=== PATIENT | female | born 1945 | race Caucasian/White ===

== ENCOUNTER 2016-12-07 11:24 | Emergency (ER) | payer MEDICARE ==
[~2016-12-07] VITALS: Ht 154.9 cm; Wt 61.4 kg
[2016-12-07] MEDS ORDERED: CITA40TA4 (11:53)
[2016-12-07] MEDS ORDERED: [UNRECOGNIZED DRUG - CODE] (11:53)
[2016-12-07] MEDS ORDERED: SPIR1CAP (11:53)
[2016-12-07] MEDS ORDERED: ADV250INH (11:53)
[2016-12-07] MEDS ORDERED: HYDR-3363 (11:53)
[2016-12-07] MEDS ORDERED: LEVO75TA4 (11:53)
[2016-12-07] MEDS ORDERED: DULO1CAP3 (11:53)
[2016-12-07] MEDS ORDERED: COMBAER6 (11:53)
[2016-12-07] MEDS ORDERED: METF500T4 (11:53)
[2016-12-07] MEDS ORDERED: VYTORIN (11:53)
[2016-12-07] MEDS ORDERED: VALS1TAB46 (11:53)
[2016-12-07] MEDS ORDERED: MAG400TA (11:53)
[2016-12-07] MEDS ORDERED: METO1TAB7 (11:53)
[2016-12-07] MEDS ORDERED: ALBU83IN (11:53)
[2016-12-07] MEDS ORDERED: LANTINJ4 (11:53)
[2016-12-07] MEDS ORDERED: MONT10TA2 (11:53)
[2016-12-07] MEDS ORDERED: methylPREDNISolone INJ 125 MG/2 ML VIAL (J2930) IV ONE (12:30)
[2016-12-07] MEDS ORDERED: ASPIRIN 81 MG CHEW TABLET PO ONE (12:30)
[2016-12-07] MEDS: IPRATROPIUM 0.5MG/ALBUTEROL 2.5MG INH SOL UD 3ML (DUONEB)(J7620) NEB SCH ×3 (12:37→13:49)
[2016-12-07 13:09] LABS: BASO # 0.1 K/mm3 (0.0-0.2); BASO % 0.6 % (0.0-1.0); EOS # 0.2 K/mm3 (0.0-0.50); EOS % 1.5 % (0.0-3.0); LARGE UNSTAINED CELL # 0.2 K/mm3 (0.0-0.4); LARGE UNSTAINED CELL % 1.6 % (0.0-4.0); LYMPH # 3.2 K/mm3 (1.5-4.5); LYMPH % 32.4 % (24.0-44.0); MEAN CORPUSCULAR HEMOGLOBIN 30.4 pg (27.0-33.0); MEAN CORPUSCULAR HGB CONC 33.5 g/dl (32.0-36.5); MONO # 0.6 K/mm3 (0.0-0.8); MONO % 5.6 % (0.0-5.0); NEUTROPHILS # 5.7 K/mm3 (1.8-7.7); NEUTROPHILS % 58.3 % (36.0-66.0); PLATELET COUNT, AUTOMATED 401 k/mm3 (150-450); RED CELL DISTRIBUTION WIDTH 13.5 % (11.5-14.5); WHITE BLOOD COUNT 9.8 K/mm3 (4.0-10.0)
[2016-12-07 13:15] LABS: INR 0.9
--- NOTE | 2016-12-07 13:30 | REP ---
Chest x-ray: Two views. History: Dyspnea and cough. Findings: The lungs are slightly hyperinflated. There is mild linear fibrosis versus plate-like atelectasis in the left base. Lung singh are otherwise clear. The pleural angles are sharp. Heart is not enlarged. There are mild degenerative changes in the thoracic spine. EKG electrodes overlie the chest. Impression: Mild hyperinflation and linear fibrosis left base. Otherwise no acute disease. Signed by Eddie Lau MD 12/07/2016 02:12 P
[2016-12-07 13:33] LABS: ANION GAP 7 MEQ/L (8-16); AST/SGOT 12 U/L (15-37); BLOOD UREA NITROGEN 15 MG/DL (7-18); CALCIUM LEVEL 9.1 MG/DL (8.8-10.2); CARBON DIOXIDE LEVEL 29 MEQ/L (21-32); CHLORIDE LEVEL 100 MEQ/L (98-107); CREATININE FOR GFR 0.72 MG/DL (0.55-1.02); GLOMERULAR FILTRATION RATE > 60.0 (>45); GLUCOSE, FASTING 176 MG/DL (80-110); POTASSIUM SERUM 3.8 MEQ/L (3.5-5.1); SODIUM LEVEL 136 MEQ/L (136-145)
[2016-12-07 13:34] LABS: ALBUMIN 3.5 GM/DL (3.2-5.2); ALBUMIN/GLOBULIN RATIO 0.83 (1.00-1.93); ALKALINE PHOSPHATASE 66 U/L (45-117); ALT/SGPT 14 U/L (12-78); BILIRUBIN,DIRECT 0.1 MG/DL (0.0-0.2); BILIRUBIN,TOTAL 0.3 MG/DL (0.2-1.0); TOTAL PROTEIN 7.7 GM/DL (6.4-8.2)
[2016-12-07] MEDS ORDERED: AVEL1TAB3 PO (16:58)
[2016-12-07] MEDS ORDERED: PRED10TA2 PO (16:59)
[2016-12-07 17:15] VITALS: BP 180/81
--- NOTE | 2016-12-07 20:30 | ECGEPIP ---
Stationary ECG Study [facility] - ED Test Date: 2016-12-07 Pat Name: ISIDRO PATINO Department: Room: - Gender: F Elementary Assistant Teacher: BRENDA : 1945 Requested By: Timothy Pope Order Number: [id number] Reading MD: Sofie Sewell Measurements Intervals [place] Rate: 99 P: VT: 0 QRS: -87 QRSD: 76 T: 72 QT: 353 QTc: 454 Interpretive Statements SINUS RHYTHM INDETERMINATE AXIS NO PRIOR FOR COMPARISON Electronically Signed On 12-07-2016 20:30:24 EDT by Sofie Sewell
--- NOTE | 2016-12-07 20:38 | ECGEPIP ---
Stationary ECG Study [facility] - ED Test Date: 2016-12-07 Pat Name: ISIDRO PATINO Department: Room: - Gender: F Fruit Sorter: mehul : 1945 Requested By: SHY MATA Order Number: [id number] Reading MD: Sofie Sewell Measurements Intervals [place] Rate: 102 P: IN: 0 QRS: -8 QRSD: 81 T: 72 QT: 350 QTc: 457 Interpretive Statements SINUS TACHYCARDIA INDETERMINATE AXIS ABNORMAL RHYTHM ECG SIMILAR 12/07/16 Electronically Signed On 12-07-2016 20:37:27 EDT by Sofie Sewell
== END 2016-12-07 17:26 | disposition home or self-care (01) ==
LOC: M ED 11:24 → EDBD 11:24 → M ED 17:26
DX: J44.1 Chronic obstructive pulmonary disease with (acute) exacerbation (principal); R00.0 Tachycardia, unspecified; R94.31 Abnormal electrocardiogram [ECG] [EKG]; E11.9 Type 2 diabetes mellitus without complications; J45.909 Unspecified asthma, uncomplicated; F17.200 Nicotine dependence, unspecified, uncomplicated; Z79.4 Long term (current) use of insulin; Z79.899 Other long term (current) drug therapy; Z88.7 Allergy status to serum and vaccine; Z88.8 Allergy status to other drugs, medicaments and biological substances
CPT/HCPCS: 71020; 80048; 80076; 82550; 82553; 84484; 85025; 85610; 87040; 93005; 93041; 94640; 94760; 96374; 99285; J2930

== ENCOUNTER → 2017-03-08 | Outpatient (CLI) | payer MEDICARE ==
[~2017-03-08] MED LIST: ADV250INH; ALBU83IN; AVEL1TAB3 PO; CITA40TA4; COMBAER6; DULO1CAP3; HYDR-3363; LANTINJ4; LEVO75TA4; MAG400TA; METF500T4; METO1TAB7; MONT10TA2; PRED10TA2 PO; SPIR1CAP; VALS1TAB46; VYTORIN; [UNRECOGNIZED DRUG - CODE]
--- NOTE | 2017-03-08 11:53 | REP ---
Clinical: History of COPD with dyspnea. Comparison: None. Findings: Moderate/early advanced COPD and emphysematous changes along with mid to lower lobe scarring and bronchiectasis (left greater than right) appear chronic. Scattered noncalcified nodular densities measuring up to 2-3 mm are noted and may represent associated chronic changes. No consolidation, effusion, or pneumothorax. No obvious adenopathy. Atherosclerotic changes to the thoracic aorta and coronary arteries noted without aortic aneurysm or cardiomegaly. No pericardial effusion. Musculoskeletal structures demonstrate age-related degenerative changes. Impression: Moderate/early advanced COPD and emphysematous changes with predominantly lower lobe (left greater than right) fibrosis and scarring. Scattered 2-3 mm noncalcified nodules likely represent associated chronic changes and less likely significant process. No prior examination is available for comparison and 9-12 month follow-up examination may be warranted to document stability. Signed by Sergio Don MD 03/08/2017 11:44 A
== END ==
LOC: M RAD 10:15
PROVIDERS: ATTEND Internal Medicine Pulmonary Disease
DX: J44.9 Chronic obstructive pulmonary disease, unspecified (principal)

== ENCOUNTER 2017-07-11 10:51 | Inpatient (IN) | payer MEDICARE ==
[2017-07-11] MEDS: NS 1,000 ML IV ×2 (11:44→16:59)
[2017-07-11] MEDS: ONDANSETRON 4MG/2ML VIAL (J2405) IV (11:44)
[2017-07-11] MEDS: MORPHINE 4 MG/ML 1ML VIAL (J2270) IV ×3 (11:45→21:36)
[2017-07-11 11:46] LABS: BASO % 0.1 % (0.0-1.0); EOS % 0.1 % (0.0-3.0); HEMATOCRIT 45.7 % (36.0-47.0); HEMOGLOBIN 14.9 g/dl (12.0-16.0); IMMATURE GRANULOCYTE % 0.7 % (0-3.0); LYMPH # 1.4 10^3/uL (1.5-4.5); LYMPH % 8.6 % (24.0-44.0); MEAN CORPUSCULAR HEMOGLOBIN 30.4 pg (27.0-33.0); MEAN CORPUSCULAR HGB CONC 32.6 g/dl (32.0-36.5); MEAN CORPUSCULAR VOLUME 93.3 fl (80.0-96.0); MONO # 0.5 10^3/uL (0.0-0.8); MONO % 3.3 % (0.0-5.0); NEUTROPHILS # 13.6 10^3/uL (1.8-7.7); NEUTROPHILS % 87.2 % (36.0-66.0); PLATELET COUNT, AUTOMATED 405 10^3/uL (150-450); RED CELL DISTRIBUTION WIDTH 13.5 % (11.5-14.5); WHITE BLOOD COUNT 15.6 10^3/uL (4.0-10.0)
[2017-07-11 12:00] LABS: AMORPHOUS SEDIMENT RFX SMALL (NEGATIVE); KETONE, URINE AUTO RFX NEGATIVE (NEGATIVE); LEUKOCYTE ESTERASE UR AUTO RFX NEGATIVE (NEGATIVE); NITRITE, URINE AUTO RFX NEGATIVE (NEGATIVE); RBC, URINE AUTO RFX 15 /HPF (0-3); SPECIFIC GRAVITY UR AUTO RFX 1.017 (1.002-1.035); SQUAM EPITHELIAL CELL UR AURFX 0 /HPF (0-6); WBC, URINE AUTO RFX 0 /HPF (0-3)
[2017-07-11 12:03] LABS: ALBUMIN 3.9 GM/DL (3.2-5.2); ALBUMIN/GLOBULIN RATIO 1.05 (1.00-1.93); ALKALINE PHOSPHATASE 58 U/L (45-117); ALT/SGPT 17 U/L (12-78); ANION GAP 8 MEQ/L (8-16); AST/SGOT 17 U/L (7-37); BILIRUBIN,DIRECT 0.1 MG/DL (0.0-0.2); BILIRUBIN,TOTAL 0.4 MG/DL (0.2-1.0); BLOOD UREA NITROGEN 20 MG/DL (7-18); CALCIUM LEVEL 9.3 MG/DL (8.8-10.2); CARBON DIOXIDE LEVEL 34 MEQ/L (21-32); CHLORIDE LEVEL 95 MEQ/L (98-107); CREATININE FOR GFR 0.93 MG/DL (0.55-1.30); GLOMERULAR FILTRATION RATE > 60.0 (>39); GLUCOSE, FASTING 175 MG/DL (70-100); LIPASE 272 U/L (73-393); POTASSIUM SERUM 3.9 MEQ/L (3.5-5.1); SODIUM LEVEL 137 MEQ/L (136-145); TOTAL PROTEIN 7.6 GM/DL (6.4-8.2)
[2017-07-11 12:10] LABS: LACTIC ACID SEPSIS PROTOCOL 3.7 MMOL/L (0.4-2.0)
[2017-07-11] MEDS: ALBUTEROL SULFATE 2.5 MG/0.5 ML INH NEB SOLN NEB (12:34)
[2017-07-11] MEDS: AZITHROMYCIN INJ 500 MG, VIAL MATE ADAPTER 1 EACH in D5W 250 ML IV (13:00)
[2017-07-11] MEDS: CEFTRIAXONE SOD 2 GM in APPROPRIATE DILUENT 1 EA IV ×2 (13:00→13:45)
[2017-07-11] MEDS ORDERED: ALBUTEROL SULFATE 2.5 MG/0.5 ML INH NEB SOLN INH ×2 (13:45→14:30)
[2017-07-11] MEDS ORDERED: GLUCOSE 4 GM CHEW TABLET PO ×2 (13:45→14:30)
[2017-07-11] MEDS ORDERED: ONDANSETRON 4MG/2ML VIAL (J2405) IV ×2 (13:45→14:30)
[2017-07-11] MEDS ORDERED: GLUCAGON FOR INJ 1 MG VIAL (J1610) SC ×2 (13:45→14:30)
[2017-07-11] MEDS ORDERED: DEXTROSE 50% 50 ML SYRINGE IV ×2 (13:45→14:30)
[2017-07-11] MEDS ORDERED: ACETAMINOPHEN TAB 650MG DOSE (2X325MG) PO ×2 (13:45→14:30)
[2017-07-11 13:54] LABS: C REACTIVE PROTEIN QUANTITATIV 0.91 MG/DL (0.00-0.30)
[2017-07-11 14:29] LABS: BEDSIDE GLUCOSE 182 MG/DL (83-110)
[2017-07-11] MEDS: IPRATROPIUM 0.5MG/ALBUTEROL 2.5MG INH SOL UD 3ML (DUONEB)(J7620) NEB ×2 (16:00→20:00)
[2017-07-11] MEDS ORDERED: IPRATROPIUM 0.5MG/ALBUTEROL 2.5MG INH SOL UD 3ML (DUONEB)(J7620) NEB (16:00)
[2017-07-11] MEDS: NYSTATIN 500,000 U/5 ML SUSP UDC SS ×2 (16:59→21:00)
[2017-07-11] MEDS: NORCO, ANEXSIA 5/325MG TABLET (HYDROcodone/ACETAMINOPHEN) PO (16:59)
[2017-07-11 17:12] LABS: BEDSIDE GLUCOSE 288 MG/DL (83-110)
[2017-07-11] MEDS ORDERED: HumaLOG INSULIN (NovoLOG) PER UNIT SC ×2 (17:30→21:00)
[2017-07-11] MEDS: HumaLOG INSULIN (NovoLOG) PER UNIT SC ×2 (17:58→21:00)
[2017-07-11] MEDS: ADVAIR HFA 115/21MCG INHALER INH (21:23)
[2017-07-11] MEDS: MAGNESIUM OXIDE 400 MG TAB (MAG-OX) PO (21:24)
[2017-07-11 21:30] LABS: BEDSIDE GLUCOSE 126 MG/DL (83-110)
[2017-07-12] MEDS: NORCO, ANEXSIA 5/325MG TABLET (HYDROcodone/ACETAMINOPHEN) PO ×3 (02:55→23:50)
[2017-07-12] MEDS: LEVOTHYROXINE 75MCG TABLET (0.075MG) PO (06:43)
[2017-07-12 07:22] LABS: HEMOGLOBIN 14.9 g/dl (12.0-16.0); MEAN CORPUSCULAR HEMOGLOBIN 30.7 pg (27.0-33.0); MEAN CORPUSCULAR HGB CONC 32.4 g/dl (32.0-36.5); MEAN CORPUSCULAR VOLUME 94.7 fl (80.0-96.0); PLATELET COUNT, AUTOMATED 385 10^3/uL (150-450); RED BLOOD COUNT 4.86 10^6/uL (4.00-5.40); RED CELL DISTRIBUTION WIDTH 13.6 % (11.5-14.5); WHITE BLOOD COUNT 15.5 10^3/uL (4.0-10.0)
[2017-07-12] MEDS: HumaLOG INSULIN (NovoLOG) PER UNIT SC ×4 (07:30→21:00)
[2017-07-12] MEDS: IPRATROPIUM 0.5MG/ALBUTEROL 2.5MG INH SOL UD 3ML (DUONEB)(J7620) NEB ×4 (07:41→20:00)
[2017-07-12] MEDS: ADVAIR HFA 115/21MCG INHALER INH ×2 (07:42→19:46)
[2017-07-12] MEDS: TIOTROPIUM INHALER/CAPSULE (SPIRIVA) INH (07:42)
[2017-07-12 07:46] LABS: ANION GAP 4 MEQ/L (8-16); BLOOD UREA NITROGEN 14 MG/DL (7-18); C REACTIVE PROTEIN QUANTITATIV 1.51 MG/DL (0.00-0.30); CALCIUM LEVEL 8.9 MG/DL (8.8-10.2); CARBON DIOXIDE LEVEL 35 MEQ/L (21-32); CHLORIDE LEVEL 99 MEQ/L (98-107); CREATININE FOR GFR 0.79 MG/DL (0.55-1.30); GLOMERULAR FILTRATION RATE > 60.0 (>39); GLUCOSE, FASTING 98 MG/DL (70-100); POTASSIUM SERUM 4.3 MEQ/L (3.5-5.1); SODIUM LEVEL 138 MEQ/L (136-145)
[2017-07-12] MEDS: ASPIRIN 81 MG ENTERIC TAB PO (08:40)
[2017-07-12] MEDS: DULoxetine 30 MG CAP (CYMBALTA) PO (08:40)
[2017-07-12] MEDS: VALSARTAN 40MG TABLET (DIOVAN) PO (08:40)
[2017-07-12] MEDS: MONTELUKAST 10 MG TAB PO (08:41)
[2017-07-12] MEDS: METOPROLOL SUCC *XL* 25MG TAB (TopROL *XL*) PO (08:41)
[2017-07-12] MEDS: MAGNESIUM OXIDE 400 MG TAB (MAG-OX) PO ×2 (08:41→20:47)
[2017-07-12] MEDS: AZITHROMYCIN 250 MG TAB PO (08:42)
[2017-07-12] MEDS: NYSTATIN 500,000 U/5 ML SUSP UDC SS ×4 (08:42→20:46)
[2017-07-12] MEDS: ENOXAPARIN 40 MG/0.4 ML SYRINGE (J1650) SC (08:43)
[2017-07-12] MEDS ORDERED: ENOXAPARIN 40 MG/0.4 ML SYRINGE (J1650) SC (09:00)
[2017-07-12] MEDS ORDERED: AZITHROMYCIN 250 MG TAB PO (09:00)
[2017-07-12 12:03] LABS: BEDSIDE GLUCOSE 129 MG/DL (83-110)
[2017-07-12] MEDS: MORPHINE 4 MG/ML 1ML VIAL (J2270) IV ×3 (12:38→21:45)
[2017-07-12] MEDS: CEFTRIAXONE SOD 2 GM in APPROPRIATE DILUENT 1 EA IV (13:43)
[2017-07-12 17:27] LABS: BEDSIDE GLUCOSE 249 MG/DL (83-110)
[2017-07-12] MEDS: predniSONE 20 MG TAB PO (20:47)
[2017-07-12 20:58] LABS: BEDSIDE GLUCOSE 113 MG/DL (83-110)
[2017-07-13] MEDS: LEVOTHYROXINE 75MCG TABLET (0.075MG) PO (06:27)
[2017-07-13] MEDS: NORCO, ANEXSIA 5/325MG TABLET (HYDROcodone/ACETAMINOPHEN) PO (06:28)
[2017-07-13 06:42] LABS: BEDSIDE GLUCOSE 279 MG/DL (83-110)
[2017-07-13 07:32] LABS: HEMATOCRIT 45.9 % (36.0-47.0); HEMOGLOBIN 14.8 g/dl (12.0-16.0); MEAN CORPUSCULAR HGB CONC 32.2 g/dl (32.0-36.5); MEAN CORPUSCULAR VOLUME 92.9 fl (80.0-96.0); PLATELET COUNT, AUTOMATED 389 10^3/uL (150-450); RED BLOOD COUNT 4.94 10^6/uL (4.00-5.40); RED CELL DISTRIBUTION WIDTH 13.4 % (11.5-14.5); WHITE BLOOD COUNT 16.4 10^3/uL (4.0-10.0)
[2017-07-13] MEDS: IPRATROPIUM 0.5MG/ALBUTEROL 2.5MG INH SOL UD 3ML (DUONEB)(J7620) NEB ×4 (07:38→21:12)
[2017-07-13] MEDS: ADVAIR HFA 115/21MCG INHALER INH ×2 (07:38→19:37)
[2017-07-13] MEDS: TIOTROPIUM INHALER/CAPSULE (SPIRIVA) INH (07:38)
[2017-07-13] MEDS: HumaLOG INSULIN (NovoLOG) PER UNIT SC ×4 (07:47→20:57)
[2017-07-13 08:41] LABS: ANION GAP 3 MEQ/L (8-16); BLOOD UREA NITROGEN 18 MG/DL (7-18); CALCIUM LEVEL 9.2 MG/DL (8.8-10.2); CARBON DIOXIDE LEVEL 37 MEQ/L (21-32); CHLORIDE LEVEL 92 MEQ/L (98-107); CREATININE FOR GFR 0.77 MG/DL (0.55-1.30); GLOMERULAR FILTRATION RATE > 60.0 (>39); GLUCOSE, FASTING 289 MG/DL (70-100); SODIUM LEVEL 132 MEQ/L (136-145)
[2017-07-13] MEDS: NYSTATIN 500,000 U/5 ML SUSP UDC SS ×4 (09:13→20:46)
[2017-07-13] MEDS: METOPROLOL SUCC *XL* 25MG TAB (TopROL *XL*) PO (09:13)
[2017-07-13] MEDS: VALSARTAN 40MG TABLET (DIOVAN) PO ×2 (09:14→16:58)
[2017-07-13] MEDS: AZITHROMYCIN 250 MG TAB PO (09:14)
[2017-07-13] MEDS: DULoxetine 30 MG CAP (CYMBALTA) PO (09:14)
[2017-07-13] MEDS: MONTELUKAST 10 MG TAB PO (09:15)
[2017-07-13] MEDS: ASPIRIN 81 MG ENTERIC TAB PO (09:15)
[2017-07-13] MEDS: MAGNESIUM OXIDE 400 MG TAB (MAG-OX) PO ×2 (09:15→20:47)
[2017-07-13] MEDS: predniSONE 20 MG TAB PO ×2 (09:15→20:47)
[2017-07-13] MEDS: ENOXAPARIN 40 MG/0.4 ML SYRINGE (J1650) SC (09:17)
[2017-07-13 11:56] LABS: BEDSIDE GLUCOSE 288 MG/DL (83-110)
[2017-07-13] MEDS: CEFTRIAXONE SOD 2 GM in APPROPRIATE DILUENT 1 EA IV (12:37)
[2017-07-13] MEDS: IBUPROFEN 400 MG TAB PO ×2 (15:20→20:46)
[2017-07-13] MEDS: NS 1,000 ML IV (16:43)
[2017-07-13 17:21] LABS: BEDSIDE GLUCOSE 336 MG/DL (83-110)
[2017-07-13] MEDS: MORPHINE 4 MG/ML 1ML VIAL (J2270) IV (19:55)
[2017-07-13] MEDS: CYCLOBENZAPRINE 5MG TABLET PO (20:46)
[2017-07-13 20:59] LABS: BEDSIDE GLUCOSE 256 MG/DL (83-110)
[2017-07-14] MEDS: NS 1,000 ML IV (04:45)
[2017-07-14] MEDS: LEVOTHYROXINE 75MCG TABLET (0.075MG) PO (06:31)
[2017-07-14] MEDS: IBUPROFEN 400 MG TAB PO ×3 (06:31→22:36)
[2017-07-14 07:25] LABS: HEMATOCRIT 41.9 % (36.0-47.0); HEMOGLOBIN 13.6 g/dl (12.0-16.0); MEAN CORPUSCULAR HEMOGLOBIN 30.8 pg (27.0-33.0); MEAN CORPUSCULAR HGB CONC 32.5 g/dl (32.0-36.5); MEAN CORPUSCULAR VOLUME 94.8 fl (80.0-96.0); PLATELET COUNT, AUTOMATED 281 10^3/uL (150-450); RED BLOOD COUNT 4.42 10^6/uL (4.00-5.40); RED CELL DISTRIBUTION WIDTH 13.5 % (11.5-14.5); WHITE BLOOD COUNT 14.4 10^3/uL (4.0-10.0)
[2017-07-14 07:36] LABS: ANION GAP 8 MEQ/L (8-16); BLOOD UREA NITROGEN 18 MG/DL (7-18); CALCIUM LEVEL 8.3 MG/DL (8.8-10.2); CARBON DIOXIDE LEVEL 29 MEQ/L (21-32); CHLORIDE LEVEL 99 MEQ/L (98-107); CREATININE FOR GFR 0.61 MG/DL (0.55-1.30); GLOMERULAR FILTRATION RATE > 60.0 (>39); GLUCOSE, FASTING 266 MG/DL (70-100); POTASSIUM SERUM 4.5 MEQ/L (3.5-5.1); SODIUM LEVEL 136 MEQ/L (136-145)
[2017-07-14] MEDS: IPRATROPIUM 0.5MG/ALBUTEROL 2.5MG INH SOL UD 3ML (DUONEB)(J7620) NEB ×4 (08:00→22:13)
[2017-07-14] MEDS: TIOTROPIUM INHALER/CAPSULE (SPIRIVA) INH (08:08)
[2017-07-14] MEDS: ADVAIR HFA 115/21MCG INHALER INH ×2 (08:08→20:12)
[2017-07-14] MEDS: HumaLOG INSULIN (NovoLOG) PER UNIT SC ×4 (08:16→21:52)
[2017-07-14] MEDS: LEVEMIR (INSULIN DETEMIR) 1 UNITS/0.01ML SC (09:04)
[2017-07-14] MEDS: AZITHROMYCIN 250 MG TAB PO (09:05)
[2017-07-14] MEDS: MONTELUKAST 10 MG TAB PO (09:06)
[2017-07-14] MEDS: METOPROLOL SUCC *XL* 25MG TAB (TopROL *XL*) PO (09:06)
[2017-07-14] MEDS: ASPIRIN 81 MG ENTERIC TAB PO (09:07)
[2017-07-14] MEDS: DULoxetine 30 MG CAP (CYMBALTA) PO (09:07)
[2017-07-14] MEDS: predniSONE 20 MG TAB PO (09:07)
[2017-07-14] MEDS: CYCLOBENZAPRINE 5MG TABLET PO ×2 (09:07→20:42)
[2017-07-14] MEDS: MAGNESIUM OXIDE 400 MG TAB (MAG-OX) PO ×2 (09:07→20:42)
[2017-07-14] MEDS: NYSTATIN 500,000 U/5 ML SUSP UDC SS ×4 (09:08→20:42)
[2017-07-14] MEDS: ENOXAPARIN 40 MG/0.4 ML SYRINGE (J1650) SC (09:33)
[2017-07-14] MEDS: VALSARTAN 80 MG TAB (DIOVAN) PO (10:58)
[2017-07-14 11:54] LABS: BEDSIDE GLUCOSE 296 MG/DL (83-110)
[2017-07-14] MEDS: CEFTRIAXONE SOD 2 GM in APPROPRIATE DILUENT 1 EA IV (12:41)
[2017-07-14 17:01] LABS: BEDSIDE GLUCOSE 306 MG/DL (83-110)
[2017-07-14] MEDS: MORPHINE 4 MG/ML 1ML VIAL (J2270) IV (20:44)
[2017-07-14] MEDS: SLF 3 ML SYR IV ×2 (20:44→22:00)
[2017-07-14 21:39] LABS: BEDSIDE GLUCOSE 277 MG/DL (83-110)
[2017-07-14] MEDS: SENNA 8.6 MG TAB (SENOKOT) PO (22:35)
[2017-07-15] MEDS: MORPHINE 4 MG/ML 1ML VIAL (J2270) IV ×2 (00:08→06:10)
[2017-07-15] MEDS: SLF 3 ML SYR IV ×3 (00:08→14:35)
[2017-07-15] MEDS: LEVOTHYROXINE 75MCG TABLET (0.075MG) PO (06:09)
[2017-07-15] MEDS: IBUPROFEN 400 MG TAB PO ×2 (06:09→14:34)
[2017-07-15 07:13] LABS: HEMATOCRIT 41.1 % (36.0-47.0); HEMOGLOBIN 13.2 g/dl (12.0-16.0); MEAN CORPUSCULAR HEMOGLOBIN 29.7 pg (27.0-33.0); MEAN CORPUSCULAR HGB CONC 32.1 g/dl (32.0-36.5); MEAN CORPUSCULAR VOLUME 92.4 fl (80.0-96.0); PLATELET COUNT, AUTOMATED 355 10^3/uL (150-450); RED BLOOD COUNT 4.45 10^6/uL (4.00-5.40); RED CELL DISTRIBUTION WIDTH 13.6 % (11.5-14.5); WHITE BLOOD COUNT 14.9 10^3/uL (4.0-10.0)
[2017-07-15 07:32] LABS: ESTIMATED AVERAGE GLUCOSE 186 MG/DL (60-110); HEMOGLOBIN A1c 8.1 %
[2017-07-15 07:42] LABS: ANION GAP 3 MEQ/L (8-16); BLOOD UREA NITROGEN 17 MG/DL (7-18); CALCIUM LEVEL 8.8 MG/DL (8.8-10.2); CARBON DIOXIDE LEVEL 34 MEQ/L (21-32); CHLORIDE LEVEL 100 MEQ/L (98-107); GLOMERULAR FILTRATION RATE > 60.0 (>39); GLUCOSE, FASTING 122 MG/DL (70-100); POTASSIUM SERUM 4.7 MEQ/L (3.5-5.1); SODIUM LEVEL 137 MEQ/L (136-145)
[2017-07-15] MEDS: HumaLOG INSULIN (NovoLOG) PER UNIT SC ×2 (07:55→13:06)
[2017-07-15] MEDS: IPRATROPIUM 0.5MG/ALBUTEROL 2.5MG INH SOL UD 3ML (DUONEB)(J7620) NEB ×2 (08:00→12:41)
[2017-07-15] MEDS: TIOTROPIUM INHALER/CAPSULE (SPIRIVA) INH (08:19)
[2017-07-15] MEDS: ADVAIR HFA 115/21MCG INHALER INH (08:19)
[2017-07-15] MEDS: ASPIRIN 81 MG ENTERIC TAB PO (09:34)
[2017-07-15] MEDS: AZITHROMYCIN 250 MG TAB PO (09:35)
[2017-07-15] MEDS: NYSTATIN 500,000 U/5 ML SUSP UDC SS ×2 (09:35→13:05)
[2017-07-15] MEDS: LEVEMIR (INSULIN DETEMIR) 1 UNITS/0.01ML SC (09:35)
[2017-07-15] MEDS: ENOXAPARIN 40 MG/0.4 ML SYRINGE (J1650) SC (09:36)
[2017-07-15] MEDS: MAGNESIUM OXIDE 400 MG TAB (MAG-OX) PO (09:36)
[2017-07-15] MEDS: METOPROLOL SUCC *XL* 25MG TAB (TopROL *XL*) PO (09:37)
[2017-07-15] MEDS: DULoxetine 30 MG CAP (CYMBALTA) PO (09:37)
[2017-07-15] MEDS: MONTELUKAST 10 MG TAB PO (09:38)
[2017-07-15] MEDS: VALSARTAN 80 MG TAB (DIOVAN) PO (09:38)
[2017-07-15] MEDS: SENNA 8.6 MG TAB (SENOKOT) PO (09:38)
[2017-07-15] MEDS: predniSONE 10 MG TAB PO (10:56)
[2017-07-15 12:28] LABS: BEDSIDE GLUCOSE 123 MG/DL (83-110)
[2017-07-15] MEDS: LevoFLOXacin 500 MG TABLET PO (14:34)
[2017-07-16] MEDS ORDERED: LevoFLOXacin 500 MG TABLET PO (06:00)
== END 2017-07-15 16:00 | disposition home or self-care (01) | DRG 194 ==
LOC: M ED 10:51 → M ED INP 13:35 → M PED 15:10
DX: J18.9 Pneumonia, unspecified organism (principal); J44.1 Chronic obstructive pulmonary disease with (acute) exacerbation; J44.0 Chronic obstructive pulmonary disease with (acute) lower respiratory infection; N20.0 Calculus of kidney; M51.26 Other intervertebral disc displacement, lumbar region; I10 Essential (primary) hypertension; E78.00 Pure hypercholesterolemia, unspecified; E11.9 Type 2 diabetes mellitus without complications; F17.210 Nicotine dependence, cigarettes, uncomplicated; Z79.82 Long term (current) use of aspirin; Z79.4 Long term (current) use of insulin; Z79.899 Other long term (current) drug therapy; Z88.7 Allergy status to serum and vaccine; Z88.8 Allergy status to other drugs, medicaments and biological substances

== ENCOUNTER 2017-12-21 13:54 | Inpatient (IN) | payer MEDICARE ==
[2017-12-21 15:05] LABS: VENOUS BASE EXCESS 3.6 (-2.0-2.0); VENOUS PARTIAL PRESSURE CO2 52.7 mmHg (38.0-50.0); VENOUS PARTIAL PRESSURE O2 57.5 mmHg (30.0-50.0); VENOUS PH 7.373 UNITS (7.330-7.430); VENOUS STANDARD HCO3 27.5 MEQ/L; VENOUS TOTAL CO2 31.6 MEQ/L (24.0-28.0)
[2017-12-21 15:08] LABS: BASO % 0.4 % (0.0-1.0); EOS # 0.2 10^3/uL (0.0-0.50); EOS % 1.9 % (0.0-3.0); HEMATOCRIT 41.4 % (36.0-47.0); HEMOGLOBIN 13.1 g/dl (12.0-15.5); IMMATURE GRANULOCYTE % 0.2 % (0-3.0); LYMPH # 2.8 10^3/uL (1.5-4.5); LYMPH % 28.8 % (24.0-44.0); MEAN CORPUSCULAR HEMOGLOBIN 29.2 pg (27.0-33.0); MEAN CORPUSCULAR HGB CONC 31.6 g/dl (32.0-36.5); MEAN CORPUSCULAR VOLUME 92.4 fl (80.0-96.0); MONO # 0.8 10^3/uL (0.0-0.8); MONO % 8.6 % (0.0-5.0); NEUTROPHILS # 5.8 10^3/uL (1.8-7.7); NEUTROPHILS % 60.1 % (36.0-66.0); PLATELET COUNT, AUTOMATED 399 10^3/uL (150-450); RED BLOOD COUNT 4.48 10^6/uL (4.00-5.40); WHITE BLOOD COUNT 9.6 10^3/uL (4.0-10.0)
[2017-12-21 15:20] LABS: PROTHROMBIN TIME 12.2 SECONDS (12.1-14.4)
[2017-12-21 15:46] LABS: ALBUMIN 3.3 GM/DL (3.2-5.2); ALBUMIN/GLOBULIN RATIO 0.92 (1.00-1.93); ALKALINE PHOSPHATASE 61 U/L (45-117); ALT/SGPT 10 U/L (12-78); ANION GAP 6 MEQ/L (8-16); AST/SGOT 13 U/L (7-37); BILIRUBIN,DIRECT < 0.1 MG/DL (0.0-0.2); BILIRUBIN,TOTAL 0.2 MG/DL (0.2-1.0); BLOOD UREA NITROGEN 12 MG/DL (7-18); CALCIUM LEVEL 9.3 MG/DL (8.8-10.2); CARBON DIOXIDE LEVEL 31 MEQ/L (21-32); CHLORIDE LEVEL 99 MEQ/L (98-107); CPK CREATINE PHOSPHOKINASE 51 U/L (26-192); CREATININE FOR GFR 0.45 MG/DL (0.55-1.30); GLOMERULAR FILTRATION RATE > 60.0 (>39); GLUCOSE, FASTING 40 MG/DL (70-100); POTASSIUM SERUM 4.3 MEQ/L (3.5-5.1); SODIUM LEVEL 136 MEQ/L (136-145); TOTAL PROTEIN 6.9 GM/DL (6.4-8.2); TROPONIN I 0.07 NG/ML (< 0.10)
[2017-12-21 15:52] LABS: CK-MB VALUE MASS 1.9 NG/ML (<3.6); MB/CK RELATIVE INDEX 3.72 (< OR =4); NT-PRO BNP 97 PG/ML (<125)
[2017-12-21 16:06] LABS: BEDSIDE GLUCOSE 40 MG/DL (83-110)
[2017-12-21 16:08] LABS: T UPTAKE 32 % (30-39); THYROXINE (T4) 6.3 UG/DL (4.5-12.0)
[2017-12-21 17:10] LABS: BEDSIDE GLUCOSE 154 MG/DL (83-110)
[2017-12-21] MEDS ORDERED: GABAPENTIN 300 MG CAP PO (18:00)
[2017-12-21] MEDS ORDERED: DEXTROSE 50% 50 ML SYRINGE IV (18:15)
[2017-12-21] MEDS ORDERED: GLUCOSE 4 GM CHEW TABLET PO (18:15)
[2017-12-21] MEDS ORDERED: GLUCAGON FOR INJ 1 MG VIAL (J1610) SC (18:15)
[2017-12-21] MEDS ORDERED: ACETAMINOPHEN 500 MG TAB PO (18:15)
[2017-12-21 18:26] LABS: BEDSIDE GLUCOSE 125 MG/DL (83-110)
[2017-12-21 18:33] LABS: ESTIMATED AVERAGE GLUCOSE 105 MG/DL (60-110); HEMOGLOBIN A1c 5.3 %
[2017-12-21] MEDS: ALBUTEROL SULFATE 2.5 MG/0.5 ML INH NEB SOLN INH (19:40)
[2017-12-21 20:34] LABS: BEDSIDE GLUCOSE 183 MG/DL (83-110)
[2017-12-21] MEDS: ADVAIR HFA 230/21MCG INHALER INH (21:00)
[2017-12-21] MEDS: MAGNESIUM OXIDE 400 MG TAB (MAG-OX) PO (22:21)
[2017-12-21] MEDS: ALBUTEROL SULFATE 2.5 MG/0.5 ML INH NEB SOLN NEB (23:26)
[2017-12-22] MEDS: LEVOTHYROXINE 75MCG TABLET (0.075MG) PO (05:53)
[2017-12-22] MEDS: PREVNAR 13 VACCINE SYRINGE (CPT CODE:90670) IM (05:57)
[2017-12-22] MEDS: ALBUTEROL SULFATE 2.5 MG/0.5 ML INH NEB SOLN INH (06:22)
[2017-12-22 06:58] LABS: BASO % 0.4 % (0.0-1.0); EOS # 0.2 10^3/uL (0.0-0.50); EOS % 1.7 % (0.0-3.0); HEMATOCRIT 40.5 % (36.0-47.0); HEMOGLOBIN 12.8 g/dl (12.0-15.5); IMMATURE GRANULOCYTE % 0.3 % (0-3.0); LYMPH # 2.2 10^3/uL (1.5-4.5); LYMPH % 23.5 % (24.0-44.0); MEAN CORPUSCULAR HEMOGLOBIN 29.2 pg (27.0-33.0); MEAN CORPUSCULAR HGB CONC 31.6 g/dl (32.0-36.5); MEAN CORPUSCULAR VOLUME 92.3 fl (80.0-96.0); MONO # 0.6 10^3/uL (0.0-0.8); MONO % 6.5 % (0.0-5.0); NEUTROPHILS # 6.4 10^3/uL (1.8-7.7); NEUTROPHILS % 67.6 % (36.0-66.0); PLATELET COUNT, AUTOMATED 384 10^3/uL (150-450); RED BLOOD COUNT 4.39 10^6/uL (4.00-5.40); WHITE BLOOD COUNT 9.5 10^3/uL (4.0-10.0)
[2017-12-22 07:12] LABS: ANION GAP 6 MEQ/L (8-16); BLOOD UREA NITROGEN 12 MG/DL (7-18); CALCIUM LEVEL 9.1 MG/DL (8.8-10.2); CARBON DIOXIDE LEVEL 35 MEQ/L (21-32); CHLORIDE LEVEL 94 MEQ/L (98-107); CREATININE FOR GFR 0.52 MG/DL (0.55-1.30); GLOMERULAR FILTRATION RATE > 60.0 (>39); GLUCOSE, FASTING 149 MG/DL (70-100); MAGNESIUM LEVEL 2.1 MG/DL (1.8-2.4); POTASSIUM SERUM 4.3 MEQ/L (3.5-5.1); SODIUM LEVEL 135 MEQ/L (136-145)
[2017-12-22] MEDS: NICOTINE 7 MG/24 HR TRANSDERMAL TD (09:00)
[2017-12-22] MEDS: DULoxetine 30 MG CAP (CYMBALTA) PO (09:05)
[2017-12-22] MEDS: METOPROLOL SUCC *XL* 25MG TAB (TopROL *XL*) PO (09:05)
[2017-12-22] MEDS: LOSARTAN 25 MG TAB PO (09:06)
[2017-12-22] MEDS: MAGNESIUM OXIDE 400 MG TAB (MAG-OX) PO (09:06)
[2017-12-22] MEDS: VITAMIN D 1,000 INTERNATIONAL UNITS TABLET PO (09:06)
[2017-12-22] MEDS: metFORMIN (GLUCOPHAGE) 1000 MG TABLET PO (09:06)
[2017-12-22] MEDS: ENOXAPARIN 40 MG/0.4 ML SYRINGE (J1650) SC (09:06)
[2017-12-22] MEDS: CYANOCOBALAMIN 500 MCG TAB PO (09:06)
[2017-12-22] MEDS: ASPIRIN 81 MG ENTERIC TAB PO (09:06)
[2017-12-22] MEDS: MONTELUKAST 10 MG TAB PO (09:06)
[2017-12-22] MEDS: TIOTROPIUM INHALER/CAPSULE (SPIRIVA) INH (11:11)
[2017-12-22] MEDS: ADVAIR HFA 230/21MCG INHALER INH (11:11)
[2017-12-22] MEDS: ALBUTEROL SULFATE 2.5 MG/0.5 ML INH NEB SOLN NEB (11:18)
[2017-12-22 12:01] LABS: BEDSIDE GLUCOSE 188 MG/DL (83-110)
== END 2017-12-22 12:30 | disposition home or self-care (01) | DRG 638 ==
LOC: M ED 13:54 → M ED INP 16:56 → M PED 20:42
DX: E11.649 Type 2 diabetes mellitus with hypoglycemia without coma (principal); J44.1 Chronic obstructive pulmonary disease with (acute) exacerbation; G61.0 Guillain-Barre syndrome; S22.060A Wedge compression fracture of T7-T8 vertebra, initial encounter for closed fracture; E03.9 Hypothyroidism, unspecified; F17.210 Nicotine dependence, cigarettes, uncomplicated; E78.5 Hyperlipidemia, unspecified; I10 Essential (primary) hypertension; Z90.710 Acquired absence of both cervix and uterus; Z88.8 Allergy status to other drugs, medicaments and biological substances; Z79.82 Long term (current) use of aspirin; Z79.51 Long term (current) use of inhaled steroids; Z88.7 Allergy status to serum and vaccine; X58.XXXA Exposure to other specified factors, initial encounter; Z79.4 Long term (current) use of insulin; Y92.9 Unspecified place or not applicable; Z99.81 Dependence on supplemental oxygen; Y93.9 Activity, unspecified

== ENCOUNTER → 2017-12-31 | Outpatient (CLI) | payer MEDICARE | LOC: M RAD 10:13 | DX: S22.060A Wedge compression fracture of T7-T8 vertebra, initial encounter for closed fracture (principal) | CPT/HCPCS: 72128 ==